=== PATIENT | female | born 1985 | race Caucasian/White ===

== ENCOUNTER 2017-06-22 06:28 | Emergency (ER) | payer OTHER ==
[~2017-06-22] VITALS: Ht 167.6 cm; Wt 61.2 kg
--- NOTE | ~2017-06-22 | CT71 ---
[facility]. [facility] A Service of [facility] & [facility] RADIOLOGY TEXT RESULTS PATIENT: JOSEF LYNN LOCATION: SED : 89 UNIT #: [id number] AGE: [address]: Phoenix Baker MD SEX: F ORDER DR: [id number] [address] [address] [id number] MR#: [id number] Acc #: [id number] NAME: JOSEF LYNN : 1985 SEX: F STUDY DATE/TIME: 06/22/2017 8:06 UNIT: SED ROOM: STUDY DESCRIPTION: CT Head Wo Contrast Attending Physician: Phoenix Baker M.D. Ordering Physician: Jose Chandra M.D. Primary Care Physician: Srinivas Vital M.D. MEDICAL IMAGING REPORT This report is preliminary unless electronic signature is present. EXAM CT scan of the head without contrast. INDICATIONS Headache, dizziness, fever, blurred vision for 15 minutes. FINDINGS Axial noncontrast images were obtained from the skull base to the vertex. This CT exam was performed with one or more of the following radiation dose reduction techniques: automatic exposure control, adjustment of mA and/or kV according to patient size, and iterative reconstruction. Ventricular size and configuration are normal. There is no evidence of acute infarct or hemorrhage. There are no extraaxial fluid collections. No mass lesion or mass effect is seen. There are no skull fractures. IMPRESSION Normal noncontrast head CT. Dictated by... René Childers M.D. THIS IS AN ELECTRONICALLY VERIFIED REPORT René Childers M.D. at 06/22/2017 3:58 PM FEL/pc TD: 06/22/2017 12:43 JOB #: [id number] MEDICAL IMAGING REPORT Page 1 of 1
== END 2017-06-22 08:59 | disposition home or self-care (01) ==
LOC: SED 06:28
DX: G44.209 Tension-type headache, unspecified, not intractable (principal); F17.200 Nicotine dependence, unspecified, uncomplicated; Z98.890 Other specified postprocedural states
CPT/HCPCS: 70450; 96372; 99284; J0780; J1200